=== PATIENT | male | born 1980 | race Caucasian/White ===

== ENCOUNTER 2019-10-31 04:44 | Day surgery (SDC) | payer OTHER ==
[2019-10-30 17:25] VITALS: BMI 26.9
--- NOTE | 2019-10-31 07:59 | HP ---
[facility]ellite H - Chief Complaint Chief Complaint: right ankle fx - Past Medical History Allergies/Adverse Reactions: Allergies Allergy/AdvReac Type Severity Reaction Status Date / Time No Known Drug Allergies Allergy Verified 10/30/19 17:26 - Current Medications Current Medications: Home Medications Medication Instructions Recorded NK [No Known Home Medication] 10/30/19 Satellite Physical Exam - Physical Examination General Appearance: Well Nourished, Well Developed, Alert & Oriented x3 ENT: Clear Lung: Normal air movement Extremities: Other (right ankle- + swelling, + ttp, decr rom, nvi, xrays show displaced lateral mal fx) Neurological: Intact, Alert, Oriented Satellite Impression/Plan - Impression/Plan Impression: right ankle fx Operative Procedure: right ankle orif Date to be Performed: 10/31/19
[2019-10-31] MEDS ORDERED: MIDAZOLAM HCL 2 MG/2 ML SINGLE DOSE VIAL ONE ×4 (11:02→11:49)
[2019-10-31] MEDS ORDERED: DEXAMETHASONE SOD PHOSPHATE/PF 10 MG/ML SDV ONE (11:03)
[2019-10-31] MEDS ORDERED: PROPOFOL 20 ML ONE ×4 (11:44→12:01)
[2019-10-31] MEDS ORDERED: SUCCINYLCHOLINE CHLORIDE 200 MG/10 ML SYRINGE ONE (11:44)
[2019-10-31] MEDS ORDERED: DEXMEDETOMIDINE HCL 200 MCG/2 ML IVPB ONE (11:45)
[2019-10-31] MEDS ORDERED: ceFAZolin SODIUM 1 GM VIAL IVPB ONE ×2 (11:55→15:00)
--- NOTE | 2019-10-31 12:43 | OP ---
Operative Note - Note: Operative Date: 10/31/19 ([facility]) Pre-Operative Diagnosis: right distal fibula fx Operation: right ankle orif Post-Operative Diagnosis: Same as Pre-op Surgeon: Alfredo Saunders Collections Representative: Marcus Diaz Anesthesia: General, Local Estimated Blood Loss (mls): 0 (tourniquet)
[2019-10-31] MEDS ORDERED: ceFAZolin 2 GRAM PREMIX BAG IVPB ONE (13:00)
[2019-10-31] MEDS ORDERED: ONDANSETRON 4 MG/2 ML VIAL IVPUSH PRN (13:06)
[2019-10-31] MEDS ORDERED: LACTATED RINGERS SOLUTION 1,000 ML IV SCH (13:15)
[2019-10-31] MEDS ORDERED: ceFAZolin SODIUM 1 GM VIAL ONE (14:40)
--- NOTE | 2019-10-31 14:55 | SPEC ---
DATE OF OPERATION: 10/31/2019 PREOPERATIVE DIAGNOSIS: Displaced right lateral malleolus fracture. POSTOPERATIVE DIAGNOSIS: Displaced right lateral malleolus fracture. PROCEDURE: Open reduction internal fixation right lateral malleolar fracture. SURGICAL ATTENDING: Alfredo Saunders MD ENGINE INSTALLER: ALEXANDRE Brody ANESTHESIA: Regional and general. CLOSURE: A Frederick distal fibular plate with appropriate interlocks, 2-0 Vicryl for subcutaneous and for fascia and eusebia for skin. ESTIMATED BLOOD LOSS: Negligible. TOURNIQUET TIME: Approximately 45 minutes. DESCRIPTION OF PROCEDURE: Patient was taken to the operating room on October 31, 2019. Regional followed by general anesthesia was administered by the anesthesiologist with IV Kefzol administered prophylactically prior to the case. A well-padded pneumatic tourniquet was placed on the right proximal leg away from the fibular head. Right lower extremity was prepped and draped in the usual sterile fashion. The leg was exsanguinated with an Esmarch bandage. Tourniquet was inflated to 250 mmHg. An 8- to 10-cm longitudinal incision over the distal fibula was incised full thickness down to the fracture. Periosteal elevator was used to free up the periosteum both on the proximal and distal fragment. Manipulating the ankle was done to open up the fracture. Curettes and irrigation were used to clean out the fracture site. A pointy reduction clamp was used to obtain an anatomical reduction of the fracture. The fracture was then lagged from anterior proximal to distal posterior using extended lag techniques achieving excellent fixation of the fracture. The 0.2 reduction clamp was able to be then removed. A distal fibular plate was then clamped to the distal fibula. One proximal and 1 distal screw was 1st drilled, depth gauged, and screwed at the appropriate size of the nonlocking screw in order to cinch the plate to the bone. After that, multiple proximal and distal screws were drilled, depth gauged, and screwed at the appropriate size locking screws. Fluoroscopy in the AP, mortis, and lateral views revealed excellent position of all hardware with anatomical reduction of the fracture on the mortis. The incision was irrigated of copious amounts of irrigation. Fascia closed with 0 Vicryl, 2-0 subcutaneous, and eusebia for skin. A sterile pressure dressing followed by a U splint was applied. Patient was awakened from anesthesia and transferred to recovery in stable condition. No complications. Estimated blood loss negligible. Tourniquet time was approximately 45 minutes. John [id number]
[2019-10-31 16:37] VITALS: TEMP 97.3
[2019-10-31 16:53] VITALS: BP 110/60; PULSE 76
== END 2019-10-31 16:30 | disposition home or self-care (01) ==
LOC: JASU-SURG 04:44
PROVIDERS: ATTEND Orthopaedic Surgery
PROC: 0QSJ04Z Reposition Right Fibula with Internal Fixation Device, Open Approach (ICD-10-PCS; principal; 2019-10-31 12:04)
DX: S82.61XA Displaced fracture of lateral malleolus of right fibula, initial encounter for closed fracture (principal); X58.XXXA Exposure to other specified factors, initial encounter; Y93.9 Activity, unspecified; Y92.9 Unspecified place or not applicable; Y99.9 Unspecified external cause status
CPT/HCPCS: 27792; C1713; 76000-TC-FY; 94760; 97116-GP